=== PATIENT | male | born 1990 | race Hispanic/Latino ===

== ENCOUNTER 2020-08-10 11:06 | Emergency (ER) | payer OTHER, SELFPAY ==
--- NOTE | 2020-08-10 11:17 | ED.GENADULT ---
HPI - General Adult General Chief complaint: Skin/Abscess/Foreign Body Stated complaint: Insect Bite Time Seen by Provider: 08/10/20 11:17 Source: patient Mode of arrival: ambulatory Limitations: no limitations History of Present Illness HPI narrative: 30-year-old male patient presents to the [facility] with complaints of an insect bite to the left chest wall x2-3 days. Patient states that him and his were moving some furniture around in their bedroom on Wednesday and thinks that he may have gotten bit by something. Denies seeing any kind of spiders or ticks that he is aware of. Patient denies any body aches chills or fevers. Patient states he does have a little bit of pain that radiates up to the left shoulder. Denies any nausea, vomiting or diarrhea. Denies taking anything for his symptoms so far. Related Data Allergies Allergy/AdvReac Type Severity Reaction Status Date / Time No Known Allergies Allergy Verified 08/10/20 11:22 Review of Systems Review of Systems: Narrative: CONSTITUTIONAL: Denies fever, chills, or sweats. EYES: Denies visual changes, redness, or discharge. ENT: Denies rhinorrhea, congestion, sore throat, or otalgia. CARDIOVASCULAR: Denies chest pain, palpitations, or edema. RESPIRATORY: Denies cough or dyspnea. GASTROINTESTINAL: Denies abdominal pain, nausea, vomiting, or diarrhea. GENITOURINARY: Denies dysuria or hematuria. SKIN: Positive redness with insect bite to left chest wall x2 to 3 days MUSCULOSKELETAL: Denies back pain, joint pain, or myalgia. NEUROLOGIC: Denies headache, numbness, or weakness. PSYCHIATRIC: Denies anxiety or depression. PMFSH Comments At the time of my signature I agree with nursing past medical history, surgical, social, and family history. There is no relevant family history pertinent to the presenting complaint. Exam Narrative: Exam Narrative: GENERAL: Well-appearing, well-nourished, and in no acute distress. HEAD: Normocephalic, atraumatic. EYES: PERRLA and EOMI. ENT: Nares clear, no rhinorrhea or epistaxis. Mucous membranes moist. NECK: Supple. No lymphadenopathy CHEST: Clear to auscultation. No respiratory distress. HEART: Regular rate and rhythm. No murmur heard. Normal peripheral pulses. ABDOMEN: Soft, nontender, nondistended, normal active bowel sounds. EXTREMITIES: Normal range of motion. No edema. SKIN: Patient has a large reddened area to the left side of the chest wall measuring approximately 15 x 9 cm. The center nestor measuring approximately 3 cm in diameter. There does seem to be a little bit of a bull's-eye marking within the reddened area. The skin is warm to the touch. There is no open wound or discharge noted. NEURO: No focal deficits. Alert and oriented x3. Course Vital Signs Vital signs: Vital Signs Temperature 36.6 C 08/10/20 11:22 Pulse Rate 79 08/10/20 11:22 Respiratory Rate 16 08/10/20 11:22 Blood Pressure 141/65 H 08/10/20 11:22 Pulse Oximetry 100 08/10/20 11:22 Temperature 36.6 C 08/10/20 11:22 Pulse Rate 79 08/10/20 11:22 Respiratory Rate 16 08/10/20 11:22 Blood Pressure 141/65 H 08/10/20 11:22 Pulse Oximetry 100 08/10/20 11:22 Vital signs reviewed. The patient has been informed that they may have pre-hypertension or Hypertension based on a BP reading in the department. I recommend that the patient call the primary care provider listed on their discharge instructions or a physician of their choice this week to arrange follow up for further evaluation of possible pre-hypertension or Hypertension Medical Decision Making Differential Diagnosis Differential Diagnosis: Differential diagnosis: Abscess, cellulitis, hidradenitis, laceration, puncture wound. Discussed with patient and that we will go ahead and place patient on oral antibiotics for the cellulitis infection. Discussed with them to keep an eye on his symptoms and if he develops worsening symptoms such as fevers, body aches, chills, vomi
[2020-08-10 11:22] VITALS: BP 141/65; PULSE 79; RESP 16; TEMP 36.6; O2SAT 100
== END 2020-08-10 11:40 | disposition home or self-care (01) ==
PROVIDERS: Emergency Provider Nurse Practitioner Family
DX: L03.313 Cellulitis of chest wall (principal)
CPT/HCPCS: 99213; G0463

== ENCOUNTER 2020-11-11 08:56 | Emergency (ER) | payer OTHER, SELFPAY ==
--- NOTE | ~2020-11-11 | XR_ITS ---
EXAMINATION: XR finger 3rd LT min 2V EXAM DATE: 11/11/2020 11:51 INDICATION: Pain left 3rd finger injury 18 days ago. Initial encounter. TECHNIQUE: Left 3rd finger frontal, lateral and oblique projections obtained and reviewed. There i s no prior study for comparison. FINDINGS: There is left q3rd middle phalangeal acute closed posttraumatic base fracture extending th rough the middle of the proximal interphalangeal joint, with about 5 mm of displacement. This will li john need to be surgically fixed, recommend orthopedic consult. There is overlying soft tissue swelli ng. 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 IMPRESSION: Middle phalangeal base fracture into PIP joint, with displacement; recommend orthopedic c onsult. Reviewed, dictated and finalized at location A. NG SKILLS ADVISOR IMPRESSION: Middle phalangeal base fracture into PIP joint, with displacement; recommend orthopedic consult.
--- NOTE | 2020-11-11 09:04 | ED.UPPEXIN ---
HPI - Extremity Injury (Upper) General Chief Complaint: Extremity Injury, Upper Stated Complaint: Left Finger Pain Time Seen by Provider: 11/11/20 09:20 Source: patient and RN notes reviewed Mode of arrival: ambulatory Limitations: no limitations History of Present Illness HPI narrative: 30-year-old male presents with concern for injury to finger to the left hand. Reports he was playing soccer 2 weeks ago and the third digit of his left hand got bent back. He reports swelling, decreased range of motion. Reports he has been taking Tylenol, denies any other intervention. MD complaint: injury to: left and finger Related Data Home Medications Medication Instructions Recorded Confirmed No Home Medications 11/11/20 11/11/20 Allergies Allergy/AdvReac Type Severity Reaction Status Date / Time No Known Allergies Allergy Verified 08/10/20 11:22 Review of Systems Review of Systems: Narrative: CONSTITUTIONAL: Denies malaise, chills, sweats, or fever. SKIN: Denies abrasion, laceration MUSCULOSKELETAL: Reports swelling, pain, decreased range of motion to the third digit of the left hand NEUROLOGIC: Denies numbness, weakness All systems reviewed & are unremarkable except as noted in HPI and below PMFSH Comments At time of signature, agree with nursing past medical, surgical, social and family history. There is no relevant family history pertinent to the presenting complaint Exam Narrative: Exam Narrative: GENERAL: Well-appearing, well-nourished, and in no acute distress. HEAD: Normocephalic EYES: PERRLA, conjunctivae clear NECK: Supple. CHEST: Speaks in full sentences. No respiratory distress. HEART: Regular rate and rhythm. Normal and equal peripheral pulses. EXTREMITIES: Third digit of left hand has normal strength and sensation. Range of motion diminished, not able to flex digit. No clubbing, cyanosis. Edema noted. Mid digit tenderness. Skin intact. Normal digital cascade with flexion of fingers, median, ulnar and radial nerve intact. Normal sensation of each side of finger. Can perform 'okay' sign. Cannot perform 'cross over finger test of index and middle fingers' or 'thumbs up' sign. No scissoring. Normal thumb opposition. Good capillary refill and radial pulse. Distal capillary refill less than 3 seconds. SKIN: Warn, dry, intact, pink. No rash NEURO: Alert and oriented x3. PSYCH: Normal mood and affect Course Course Emergency Course: Patient is aware of diagnosis, understands and agrees to treatment plan. Anticipatory guidance given. Patient agrees to follow-up as directed and is aware of reasons to seek care at the emergency department. Portions of this record may have been created with voice recognition software Vital Signs Vital signs: Vital Signs Temperature 96.0 F L 11/11/20 09:11 Pulse Rate 61 11/11/20 09:11 Respiratory Rate 16 11/11/20 09:11 Blood Pressure 132/68 11/11/20 09:11 Pulse Oximetry 99 11/11/20 09:11 Temperature 96.0 F L 11/11/20 09:11 Pulse Rate 61 11/11/20 09:11 Respiratory Rate 16 11/11/20 09:11 Blood Pressure 132/68 11/11/20 09:11 Pulse Oximetry 99 11/11/20 09:11 Reviewed. MDM - Extremity Injury (Upper) MDM Narrative Medical decision making narrative: Exam findings and imaging show no acute concerns or changes; patient is non-toxic appearing and is in no distress. Patient is appropriate for outpatient treatment and follow-up. Differential Diagnosis Differential diagnosis: Likely finger sprain, dislocation of finger and other (Finger fracture) Imaging Data My impression: Images reviewed, interpreted by radiologist, agree, see report. Critical Care Time Critical Care Time Critical Care Time: No Discharge Plan Discharge Clinical Impression: Finger fracture, left Qualifiers: Encounter type: initial encounter Finger: middle finger Fracture type: closed Phalanx: middle Fracture alignment: displaced Qualified Code(s): S62.623A - Displaced fracture o
[2020-11-11 09:11] VITALS: BP 132/68; PULSE 61; RESP 16; TEMP 35.6; O2SAT 99
== END 2020-11-11 09:40 | disposition home or self-care (01) ==
PROVIDERS: Emergency Provider Nurse Practitioner
DX: S62.623A Displaced fracture of middle phalanx of left middle finger, initial encounter for closed fracture (principal); X50.9XXA Other and unspecified overexertion or strenuous movements or postures, initial encounter; Y93.66 Activity, soccer; S63.253A Unspecified dislocation of left middle finger, initial encounter
CPT/HCPCS: 29130; 73140; 99214; G0463

== ENCOUNTER → 2020-11-19 15:30 | Outpatient (CLI) | payer OTHER, SELFPAY ==
--- NOTE | ~2020-11-19 | CT_ITS ---
EXAMINATION: CT hand LT wo con DATE: 11/19/2020 15:55 INDICATION: Displaced fracture of the left third middle phalanx. TECHNIQUE: High resolution computed tomography (CT) of the left hand was performed without intravenou s contrast. Additional sagittal and coronal reconstructions were performed. Automated exposure contro l and iterative reconstruction technique were employed. The dose-length product was 106.15 mGy-cm. COMPARISON: Radiographs dated 11/11/2020 FINDINGS: Again seen is an oblique coronally oriented intra-articular fracture at the base of the left third mi ddle phalanx. There is 4 mm proximal migration and dorsal displacement of the distal fragment which i ncludes the dorsal half of the proximal articular surface. The smaller palmar sided fragment which in cludes the palmar half of the proximal articular surface remains in normal alignment relative to the head of the proximal phalanx. Joint effusion at the third proximal interphalangeal joint with surroun ding soft tissue swelling. No other fractures identified. Mild osteoarthritis at the third distal int erphalangeal joint. Remaining joint spaces are relatively preserved. IMPRESSION: 1. Intra-articular fracture involving the base of the third middle phalanx with mild dorsal displacem ent and proximal migration of the larger fragment as detailed above. Reviewed, dictated and finalized at location B. HING MACHINE OPERATOR IMPRESSION: 1. Intra-articular fracture involving the base of the third middle phalanx with mild dorsal displacement and proximal migration of the larger fragment as deta iled above.
== END ==
PROVIDERS: Visit Provider Plastic Surgery
DX: S62.623A Displaced fracture of middle phalanx of left middle finger, initial encounter for closed fracture (principal)
CPT/HCPCS: 73200

== ENCOUNTER 2020-11-23 01:35 | Outpatient (CLI) | payer OTHER, SELFPAY ==
[2020-11-23 18:46] LABS: SARS-CoV-2 RNA PCR Negative
== END 2020-11-23 01:36 | disposition home or self-care (01) ==
LOC: ANHCOVIDDT 01:37
PROVIDERS: Visit Provider Plastic Surgery
DX: Z01.812 Encounter for preprocedural laboratory examination (principal); Z20.822 Contact with and (suspected) exposure to COVID-19
CPT/HCPCS: C9803; U0003; U0005

== ENCOUNTER 2020-11-27 01:22 | Day surgery (SDC) | payer OTHER, SELFPAY ==
[2020-11-22 12:04] VITALS: BMI 43.0
[2020-11-22 12:40] VITALS: BP 128/75; PULSE 79; RESP 16; TEMP 36.4; O2SAT 99
[2020-11-27] VITALS (7 sets, daily range): BP systolic 121–145; BP diastolic 55–90; PULSE 58–111; RESP 10–20; TEMP 36.1–36.4; O2SAT 93–100
--- NOTE | ~2020-11-27 | XR_ITS ---
XR surgery orthopedic DATE: 11/27/2020 13:49 INDICATION: ORIF left middle finger TECHNIQUE: Numerous spot C-arm images 212.5 seconds fluoroscopy time 3.46 mGy COMPARISON: 11/11/2020 left third digit FINDINGS: A screw is directed posteroanteriorly through the proximal aspect of the middle phalanx of the third digit. IMPRESSION: ORIF middle phalangeal fracture Reviewed, dictated and finalized at Location A. Reviewed, dictated and finalized at location A. TAL MARKETING PROGRAM MANAGER
--- NOTE | 2020-11-27 07:10 | WPDHPUPDATE1 ---
History and Physical Update Update Date/Time: 11/27/20 07:10 History and Physical has been reviewed, including an updated exam of the patient. There are NO changes in the patient's condition. Risks, benefits, and alternatives have been discussed and questions answered. Patient agrees to proceed with procedure.
[2020-11-27] MEDS: LACTATED RINGERS 1,000 ML 30 ML IV CONT ×2 (09:41→13:51)
--- NOTE | 2020-11-27 10:21 | P.PNAN_ITS ---
Anes - Initial Pre Proc Eval Procedure: Operation Date: 11/27/20 10:30 Proposed Procedures p Open Reduction Internal Fixation Left Middle Finger Middle Phalanx With Screws Or Wires, Possible External Fixation - Neo Soriano MD Date/Time: 11/27/20 10:21 Surgeon: Neo Soriano MD Pre Op Diagnosis: left middle finger fx Patient Data Age: 30 Gender: M Height: 5 ft 5 in Weight: 114.8 kg Last Vital Signs Temp 97.0 F L 11/27/20 08:45 Pulse 58 L 11/27/20 08:45 Resp 18 11/27/20 08:45 BP 128/81 11/27/20 08:45 Pulse Ox 97 11/27/20 08:45 Allergies Allergy/AdvReac Type Severity Reaction Status Date / Time No Known Allergies Allergy Verified 11/27/20 09:18 Home Medications Medication Instructions Recorded Confirmed Type omeprazole 20 mg PO PRN PRN 11/22/20 11/22/20 History Patient hx anesthesia problems: none Family hx anesthesia problems: none [facility] Past Medical History Medical History (Updated 11/27/20 @ 10:21 by Jimmy Groves MD) GERD (gastroesophageal reflux disease) Morbid obesity Social History Social History Smoking status: Never smoker Alcohol intake: current Drinks per week: 1 Living arrangements: with family Spiritual care concerns: No Anes - Eval Final PreProcedure Day of Procedure 11/27/20 10:21 Patient weight: morbidly obese Heart: regular rate and rhythm Lungs: clear to auscultation Airway: Mallampati scale class II Neurological: alert and oriented Last oral intake: >/= 8 hours ASA classification: III Emergent: no Anesthetic plan: proceed Anesthesia type and monitoring: general LMA and standard monitoring Informed Consent: The patient's anesthetic plan and its attendant risks and benefits were discussed with the patient/family/POA. Questions were solicited and answers provided to the satisfaction of the patient/family/POA.
[2020-11-27] MEDS: LIDO 1%/EPINEPHRINE 1:100,000 50 ML VIAL 20 ML INFILTRATE (11:41)
[2020-11-27] MEDS: BACITRACIN OINTMENT 15 GM TUBE 1 APPLIC TOPICAL (13:31)
[2020-11-27] MEDS: BUPIVACAINE HCL 0.5% PF 30 ML VIAL INFILTRATE (13:38)
--- NOTE | 2020-11-27 13:44 | P.OPB_ITS ---
Procedure Note - Brief Procedure Note - Brief Date of procedure: 11/27/20 Pre-op diagnosis: left middle finger fx Post-op diagnosis: same Procedure performed: Open reduction and placement of external fixator to left middle finger. Surgeon: Neo Soriano MD Electric Track Switch Maintainer: Vahe Estimated blood loss (mL): 5 Tourniquet time (min): 110 Drains: No Packing: No Pathology: none sent Complications: No immediate complications Condition: stable
--- NOTE | 2020-11-27 15:59 | SUR.PHASEII ---
[id number] dr miranda notified at office. pt is oozing from sutures a fair amount, or nurse, leigh, on phone with dr miranda getting directions about type of dressing to apply. vaseline gauze, sponges, and krylix applied to lt middle finger. directions given to spouse.
--- NOTE | 2020-11-27 18:16 | P.OP_ITS ---
Procedure Note - Detailed Date of procedure: 11/27/20 Pre-op diagnosis: left middle finger fx Post-op diagnosis: other (Fracture dislocation of the middle phalanx of the left middle finger.) Procedure performed: Open reduction and application of Barney external dynamic fixator. Description of procedure: The patient's left hand was marked in the holding area. He was taken to the operating room and placed upon the operating table. A Time-Out was held and confirmed. He was given general anesthesia with endotracheal intubation. The left upper extremity was prepped and draped in usual fashion. A tourniquet was applied. An attempt was made to reduce this fracture dislocation under C-arm control. Reduction could not be achieved. Markings were made on the palm side of the finger for access via a radial based flap. The tourniquet was inflated to 250 mmHg. Lidocaine 1% with epinephrine was infiltrated as an intrathecal block. The flap was incised and elevated to the radial side. The ulnar neurovascular bundle was identified and held with a vessel loop. The sheath between the A2 and the A4 pulleys was incised and also elevated to the radial side. The fracture fragment at the volar base was confirmed by C-arm imaging and I undertook to separate the fragments and defined them. This proved to be very tedious. This fracture is more than 4 weeks out I believe. A dorsal midline incision was then made and the joint was opened between the ulnar lateral bands and the central slip. Even from that vantage I was not able to reduce the fracture. Fracture clot and small fragments of cartilage were removed from the joint space. Portions of the central slip tucked between the bones dorsally initially impeded this maneuver. I felt uneasy about further disrupting the central slip or collateral ligaments or the base of the A 4 iram which might have made reduction easier. We did attempt a lag screw from the dorsal to volar ulnar direction, but could not fully reduce the fracture. At that point I determined to move forward with an external fixator. I repaired the lateral bands and central slip with 4-0 Prolene. I turned the hand over and repaired the flexor sheath with 4-0 Prolene. The dorsal skin wound was closed with running 5 0 nylon. Under C-arm control a transverse 0.045 in C wire was driven through the head of the proximal phalanx at the center of the arc of rotation. The 2nd pin was placed transversely through the dorsal subluxed shaft at the most distal aspect of the fracture. The distal traction pin was placed closer to the head of the middle phalanx. The long traction pin was bent appropriately at both ends for traction hooks. Jurgan's balls were applied to the cut ends of the distal 2 pins. The volar flap was closed with running 4-0 nylon. The long traction wire was arced over the middle pin and under the distal pin. The dental rubber bands were applied placing the fracture on traction longitudinally and palmarward. Half % Bupivacaine was injected at the base of the digit. Images were made demonstrating the reduction that had been made and the congruency of the joint surfaces in extension and flexion. The patient was awakened and transported to the recovery in stable condition. Anesthesia: GLMA Surgeon: Neo Soriano MD Blasting Contract Miner: Vahe Estimated blood loss (mL): 10 Tourniquet time (min): 110 Drains: No Packing: No Pathology: none sent Complications: No immediate complications Condition: stable Disposition: PACU
== END 2020-11-27 16:00 | disposition home or self-care (01) ==
PROVIDERS: Visit Provider Plastic Surgery
PROC: (CPT 26735; principal; 2020-11-27 10:30)
DX: S62.623A Displaced fracture of middle phalanx of left middle finger, initial encounter for closed fracture (principal); K21.9 Gastro-esophageal reflux disease without esophagitis; E66.01 Morbid (severe) obesity due to excess calories; Z68.41 Body mass index [BMI] 40.0-44.9, adult; W21.02XA Struck by soccer ball, initial encounter; Y93.66 Activity, soccer
CPT/HCPCS: 26735; 20690; A9270; C1713; C9803; J0330; J0690; J1100; J1170; J2250; J2405; J2704; J3010; J7120; U0003; U0005

== ENCOUNTER 2020-12-17 13:50 | Outpatient (RCR) | payer OTHER, SELFPAY ==
--- NOTE | 2020-12-17 14:48 | OTOPEVAL ---
OCCUPATIONAL THERAPY INITIAL EVALUATION REPORT 12/17/20 Hernan presented today for OT evaluation 3 weeks following open reduction and application of a Barney external dynamic fixator. He has been instructed in ROM exercises as well as edema management. He is independent with all instructed materials at this time and demonstrates good understanding. Plan to have patient continue to be followed by OT, but no formal visits scheduled at this time. Plan to have patient return for progression of exercises after pin removal surgery. Will keep patient's chart open to allow him to return if there happen to be any issues in the meantime. Thank you for referring Hernan Talavera to [facility].? The patient is scheduled to be seen for therapy? 0-1x/week for 4 weeks. Please review, sign, date and return this plan of care JESSICA. I agree with and certify that the following plan of care is medically necessary. Referring Physician Date Referring Provider: Neo Soriano MD *OT Outpatient Evaluation Start: 12/17/20 14:01 Freq: Status: Active Protocol: Document 12/17/20 14:01 JENNI (Rec: 12/17/20 14:48 JENNI [email or web address]) Therapy Assessment Status Assessment Status Assessment Status Evaluation Outpatient Past Medical History Past Medical History Source of Past Medical History Recalled from Previous Visit, Confirmed with Patient/Family Neurological History Hx Neurological Disorders No Significant History Cardiovascular History Hx Cardiac Disorders No Significant History Respiratory History Hx Respiratory Disorders No Significant History Gastrointestinal History Hx Gastroesophageal Reflux Disease Yes Genitourinary History Hx Genitourinary Disorders No Significant History Musculoskeletal History Hx Crutches or Walker Use Yes: CRUTCHES Query Text:If Yes, Enter Crutches, Walker, or Both in the Comment Hx Fractures Yes: tibia Hx Orthopedic Surgery Yes: TIBIA/ANKLE ORIF/HARDWARE REMOVED Hx Other Musculoskeletal Disorders Yes: LEFT MIDDLE FINGER FX Hematological History Hx Hematological Disorders No Significant History Endocrine History Hx Endocrine Disorders No Significant History HEENT History Hx HEENT Disorders No Significant History Integumentary History Hx Skin Disorders No Significant History Reproductive History Hx Reproductive Disorders No Significant History Psychosocial History Hx Psychiatric Disorders No Significant History Pain History History of Any Previous or Ongoing No Significant History Instance of Pain Anesthesia History Hx Anesthesia Reactions No Significant History Evaluation Information Problem Diagnosis Fracture dislocation left middle finger PIP joint and middle phalanx Onset 10/25/20 Additional Evaluation Detail Patient did not get acosta
--- NOTE | 2020-12-27 15:08 | PCOTNOTE ---
Spoke with Dr. Soriano and the patient via phone today. Hernan had his follow up appointment with Dr. Soriano on Wednesday12/25/20. Dr. Soriano reports that the pin sites are doing well and he has minimal swelling. Plan is to follow up for repeat x-rays in 2 weeks. Hernan states that his exercises are going well and he does not feel any need to follow up with therapy at this time. Will be in touch with MD and patient after repeated x-rays to see when the pins will be removed and have the patient scheduled a follow up with therapy. Hermes Saavedra, OTR/L, CHT
--- NOTE | 2021-01-22 15:41 | PCOTNOTE ---
01/22/21 - Spoke with Dr. Soriano who stated that the patient is cleared to return to therapy. Called pt and left voicemail to set up an appointment.
--- NOTE | 2021-02-04 09:36 | PCOTNOTE ---
Admitting Provider: Attending Provider: Neo Soriano MD Patient:Hernan Talavera Date of :1990 Patient has not returned for any further treatments since his initial evaluation on 12/17/2020, therefore he will be discharged at this time. At the initial visit he was instructed in ROM exercises and edema management. He was independent with all materials and it was agreed that he did not need continued visits. His chart was left open to allow him to return as needed, but he did not call to schedule any follow up visits. Today his chart is being discharged as it has been 7 weeks since he has been seen by therapy. No formal re-assessment has been completed as he has not returned. Please refer back to therapy if needed. Thank you for referring this patient to [facility]. Please review, sign, date and return this discharge summary JESSICA. I have been updated about the patient's current status and I agree with discharge from the above service at this time. Referring Physician Date Referring Provider: Neo Soriano MD
== END 2021-03-03 07:31 | disposition home or self-care (01) ==
LOC: ANHOT 13:50
PROVIDERS: Visit Provider Plastic Surgery
DX: Z47.89 Encounter for other orthopedic aftercare (principal)
CPT/HCPCS: 97110; 97165

== ENCOUNTER 2020-12-26 17:22 | Emergency (ER) | payer OTHER, SELFPAY ==
--- NOTE | 2020-12-26 17:32 | ED.BACK ---
HPI - Back Pain/Injury General Chief Complaint: Back Pain/Injury Stated Complaint: lower back pain Time Seen by Provider: 12/26/20 17:38 Source: patient and RN notes reviewed Mode of arrival: ambulatory Limitations: no limitations History of Present Illness HPI Narrative: 30-year-old male presents with concern for mid low back pain. Reports pain started approximately 2 weeks ago and has been intermittent however over the last several days it has gotten worse. Reports pain is worse when sitting down, slightly alleviated when standing up. Denies any injury or trauma. Denies fever, abdominal pain, weakness in any extremity, loss of bowel or bladder function, perianal anesthesia, bruising, spinal tenderness. MD elicited complaint: back pain Related Data Allergies Allergy/AdvReac Type Severity Reaction Status Date / Time No Known Allergies Allergy Verified 12/26/20 17:37 Review of Systems Review of Systems: Narrative: CONSTITUTIONAL: Denies malaise, chills, sweats, or fever. CARDIOVASCULAR: Denies chest pain, palpitations, or edema. RESPIRATORY: Denies cough or dyspnea. GASTROINTESTINAL: Denies abdominal pain, nausea, vomiting, diarrhea, bloody, or mucous stools. GENITOURINARY: Denies dysuria or hematuria. SKIN: Denies bruising, redness MUSCULOSKELETAL: Reports mid low back pain. Denies joint pain, or myalgia. NEUROLOGIC: Denies numbness, weakness, or headache. PSYCHIATRIC: Denies anxiety or depression. All systems reviewed & are unremarkable except as noted in HPI and below PMFSH Past Medical History Medical History (Updated 12/26/20 @ 17:49 by Madison Frost NP) GERD (gastroesophageal reflux disease) Morbid obesity Social History Social History Smoking status: Never smoker Alcohol intake: current Drinks per week: 1 Gender identity (if verbalized by the patient): Male Spiritual care concerns: No Comments At time of signature, agree with nursing past medical, surgical, social and family history. There is no relevant family history pertinent to the presenting complaint Exam Narrative: Exam Narrative: GENERAL: Well-appearing, well-nourished, and in no acute distress. HEAD: Normocephalic, atraumatic. EYES: PERRLA and EOMI. NECK: Supple. No lymphadenopathy. CHEST: Clear to auscultation. No respiratory distress. HEART: Regular rate and rhythm. Distal pulses palpable and equal, cap refill <3 seconds ABDOMEN: Soft, nontender, nondistended, normal active bowel sounds, no palpable or pulsatile masses. No CVA tenderness MUSCULOSKELETAL: Normal range of motion and strength in all extremities; 5/5 strength with hip flexion and extension, dorsiflexion and extension, knee flexion and extension, plantar flexion and extension. Normal sensation in dermatomal distributions with sensitivity to light touch and pain. No midline back tenderness to palpation. No paraspinal tenderness. Transfers from lying to sitting to standing. SKIN: Warm, dry, no rash. No ecchymosis, erythema, open wounds to back. NEURO: No focal deficits. Alert and oriented x3. Reflexes intact. Normal gait. PSYCH: Normal mood and affect Course Course Emergency Course: Patient is aware of diagnosis, understands and agrees to treatment plan. Anticipatory guidance given. Patient agrees to follow-up as directed and is aware of reasons to seek care at the emergency department. Portions of this record may have been created with voice recognition software Vital Signs Vital signs: Vital Signs Temperature 96.6 F L 12/26/20 17:42 Pulse Rate 82 12/26/20 17:42 Respiratory Rate 16 12/26/20 17:42 Blood Pressure 131/70 12/26/20 17:42 Pulse Oximetry 99 12/26/20 17:42 Temperature 96.6 F L 12/26/20 17:42 Pulse Rate 82 12/26/20 17:42 Respiratory Rate 16 12/26/20 17:42 Blood Pressure 131/70 12/26/20 17:42 Pulse Oximetry 99 12/26/20 17:42 Reviewed. MDM - Back Pain/Injury MDM Narrati
[2020-12-26 17:42] VITALS: BP 131/70; PULSE 82; RESP 16; TEMP 35.9; O2SAT 99
== END 2020-12-26 17:54 | disposition home or self-care (01) ==
PROVIDERS: Emergency Provider Nurse Practitioner
DX: M54.5 Low back pain (principal); K21.9 Gastro-esophageal reflux disease without esophagitis; E66.01 Morbid (severe) obesity due to excess calories; Z68.30 Body mass index [BMI] 30.0-30.9, adult
CPT/HCPCS: 99213; G0463

== ENCOUNTER → 2021-01-04 10:44 | Outpatient (CLI) | payer OTHER, SELFPAY ==
--- NOTE | ~2021-01-04 | XR_ITS ---
XR finger 3rd LT min 2V 01/04/2021 11:00 Indication: Follow-up left third middle phalangeal fracture Procedure: 4 views left third finger Comparison: 11/11/2020 Findings: Stable alignment of mildly displaced oblique intra-articular fracture base of the left thir d middle phalanx with evidence for osseous bridging and callus formation. Osteopenia. No other fractu re. Overlying splint noted. Impression: 1: Healing oblique mildly displaced intra-articular fracture left third middle phalanx. Reviewed, dictated and finalized at location A. ST EXAMINER Impression: 1: Healing oblique mildly displaced intra-articular fracture left third middle phalanx.
== END ==
PROVIDERS: Visit Provider Plastic Surgery
DX: S62.623A Displaced fracture of middle phalanx of left middle finger, initial encounter for closed fracture (principal)
CPT/HCPCS: 73140

== ENCOUNTER → 2021-01-11 00:55 | Outpatient (CLI) | payer OTHER, SELFPAY ==
[2021-01-11 19:12] LABS: SARS-CoV-2 RNA PCR Negative
== END ==
PROVIDERS: Visit Provider Plastic Surgery
DX: Z01.812 Encounter for preprocedural laboratory examination (principal); Z20.822 Contact with and (suspected) exposure to COVID-19
CPT/HCPCS: C9803; U0003; U0005

== ENCOUNTER 2021-01-15 02:29 | Day surgery (SDC) | payer OTHER, SELFPAY ==
[2021-01-08 14:29] VITALS: BMI 45.7
[2021-01-15] VITALS (8 sets, daily range): BP systolic 130–150; BP diastolic 67–91; PULSE 55–62; RESP 14–20; TEMP 36.1; O2SAT 98–100
--- NOTE | ~2021-01-15 | XR_ITS ---
EXAMINATION: XR surgery orthopedic DATE: 01/15/2021 09:43 INDICATION: Removal of external fixator from the left third digit. TECHNIQUE: 12 fluoroscopic images of the left third digit were obtained during procedure performed by Dr. Soriano. Radiologist was not present for the imaging or procedure. The amount of fluoroscopy time used during this procedure was 2.0 minutes. COMPARISON: 11/27/2020 FINDINGS: Initial images demonstrate external fixation device at the third digit with pins extending through th e head of the proximal phalanx and through the mid and distal aspect of the middle phalanx. There are a few additional pre-existing pin tracks through the middle phalanx. Subsequent images demonstrate r emoval of the external fixation device with no residual retained foreign bodies. The prior intra-kim cular fracture at the base of the middle phalanx has healed in near-anatomic alignment with negligibl e residual incongruity along the articular surface. Benign-appearing periosteal reaction about the di stal diaphysis of the proximal phalanx likely in response to the external fixation device. 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 IMPRESSION: 1. Fluoroscopy utilized during removal of external fixation which spanned a now healed intra-articula r fracture at the base of the middle phalanx which is in near-anatomic alignment. Reviewed, dictated and finalized at location A. IMPRESSION: 1. Fluoroscopy utilized during removal of external fixation which spanned a now healed intra-articular fracture at the base of the middle phalanx which is in near-anatomic alignment.
--- NOTE | 2021-01-15 07:36 | WPDHPUPDATE1 ---
History and Physical Update Update Date/Time: 01/15/21 07:36 History and Physical has been reviewed, including an updated exam of the patient. There are NO changes in the patient's condition. Risks, benefits, and alternatives have been discussed and questions answered. Patient agrees to proceed with procedure.
[2021-01-15] MEDS: LIDO 1%/EPINEPHRINE 1:100,000 50 ML VIAL INFILTRATE (09:11)
--- NOTE | 2021-01-15 09:46 | PM.PROC ---
Procedure Note - Detailed Date of procedure: 01/15/21 Pre-op diagnosis: s/p middle finger phalanx fx Post-op diagnosis: same Procedure performed: Removal of external fixator left middle finger and ROM manipulation under local anesthesia. Anesthesia: local Surgeon: Neo Soriano MD Estimated blood loss (mL): 0 Tourniquet time (min): 0 Drains: No Packing: No Pathology: none sent Complications: No immediate complications Condition: stable Disposition: same day
--- NOTE | 2021-01-15 09:48 | PM.PROC ---
Procedure Note - Detailed Date of procedure: 01/15/21 Pre-op diagnosis: s/p middle finger phalanx fx SP fracture dislocation of middle phalanx of left middle finger with application of Barney dynamic external fixator. Post-op diagnosis: same Procedure performed: Removal of Barney dynamic external fixator to the left middle finger and range of motion manipulation under local anesthesia. Description of procedure: Patient's hand was marked in the holding stanley. He was taken to the operating room and placed supine on the operating table. Time-out was held and confirmed. The left upper extremity was prepped and draped in usual fashion. Local anesthetic was administered via intrathecal block using 1% lidocaine with epinephrine. The external fixator was removed without difficulty. Images were taken just prior to removal of the device and multiple images were taken during the range of motion portion of the procedure. Images, moving and static, show healed fragment malunion, and widening the overall joint diameter. Lateral views seem to show slight dorsal subluxation, however others appear to show satisfactory gliding of the middle phalanx on the head of the proximal phalanx. Active range of motion images were not stored on our fluoroscopic device, but appeared to show the same thing. The digit appears to passively flex from 0-60 ?. The patient could flex and extend actively. No grinding of the joint was palpable. There was no evidence of infection. The patient will be discharged home with Band-Aids to be removed later today or tomorrow. He has a prescription for cephalexin 500 mg 3 times a day for 5 days. He has a prescription for hydrocodone 5/325 10.. He is to continue the sort of exercises he has been doing while in the fixator. He will be followed up in 1 week. Surgeon: Neo Soriano MD
--- NOTE | 2021-01-15 09:59 | PM.PROC ---
Procedure Note - Detailed Date of procedure: 01/15/21 Pre-op diagnosis: s/p middle finger phalanx fx Surgeon: Neo Soriano MD
--- NOTE | 2021-01-15 10:08 | SUR.PHASEII ---
1000- per Dr Soriano, also called in to the pharmacy was an order for a few days of an antibiotic. Pt aware of this, and told to pick it up when he picks up pain medicine.
== END 2021-01-15 10:20 | disposition home or self-care (01) ==
PROVIDERS: Visit Provider Plastic Surgery
PROC: (CPT 20694; principal; 2021-01-15 09:45)
DX: Z47.2 Encounter for removal of internal fixation device (principal); S62.623D Displaced fracture of middle phalanx of left middle finger, subsequent encounter for fracture with routine healing
CPT/HCPCS: 20694; C9803; U0003; U0005

== ENCOUNTER 2024-03-21 10:35 | Emergency (ER) | payer SELFPAY ==
--- NOTE | 2024-03-21 10:41 | ED.EYEPROB ---
HPI - Eye Problem General Chief complaint: Eye Problems Stated complaint: Left Eye Irritation Time Seen by Provider: 03/21/24 11:06 Source: patient and RN notes reviewed Mode of arrival: ambulatory Limitations: no limitations History of Present Illness HPI Narrative: 33-year-old male presents with concern for left eye redness, irritation, drainage since yesterday. He denies vision changes. Reports his daughter recently had pinkeye. Reports his eye was crusted shut this morning chief complaint: eye redness Related Data Allergies Allergy/AdvReac Type Severity Reaction Status Date / Time No Known Allergies Allergy Verified 01/08/21 14:28 Review of Systems Review of Systems: CONSTITUTIONAL: Denies malaise, chills, sweats, or fever. EYES: Denies visual changes. Reports left eye redness, irritation, discharge. ENT: Denies rhinorrhea, congestion, sinus pain, otalgia or sore throat. SKIN: Denies rash or itching. NEUROLOGIC: Denies numbness, weakness, or headache. PSYCHIATRIC: Denies anxiety or depression. All systems reviewed & are unremarkable except as noted in HPI and below PMFSH Past Medical History Medical History (Updated 03/21/24 @ 11:09 by Madison Frost NP) GERD (gastroesophageal reflux disease) Morbid obesity Social History Social History Smoking status: Never smoker Alcohol intake: current Drinks per week: 4 Substance use: never Substance use type: does not use Living arrangements: with family Gender identity (if verbalized by the patient): Male Spiritual care concerns: No Comments At time of signature, agree with nursing past medical, surgical, social and family history. There is no relevant family history pertinent to the presenting complaint Exam Narrative: GENERAL: Well-appearing, well-nourished, and in no acute distress. HEAD: Normocephalic, atraumatic. EYES: PERRLA and EOMI. No nystagmus. Left sclera and conjunctivae injected. Left upper eyelid edematous Right Upper and lower eyelid unremarkable. No periorbital edema noted ENT: Nares clear, turbinates pink, no rhinorrhea or epistaxis. Mucous membranes moist. TM pearly fragoso with sharp light reflex bilaterally; no tragal tenderness. NECK: Supple. CHEST: No respiratory distress. Speaks in full sentences. HEART: Regular rate and rhythm. SKIN: Warm, dry, no visible rash. NEURO: Alert and oriented x3. PSYCH: Normal mood and affect Course Course Emergency Course: Patient is aware of diagnosis, understands and agrees to treatment plan. Anticipatory guidance given. Patient agrees to follow-up as directed and is aware of reasons to seek care at the emergency department. Portions of this record may have been created with voice recognition software Level of Care: Express Care Visit Vital Signs Vital signs: Reviewed. MDM - Eye Problem MDM Narrative Medical decision making narrative: Consideration of the following conditions may be warranted for the presenting problem, they are not final diagnoses: Bacterial conjunctivitis, allergic conjunctivitis, viral conjunctivitis, foreign body, blepharitis, chalazion, hordeolum, corneal abrasion, preseptal cellulitis, orbital cellulitis. No evidence of proptosis, ophthalmoplegia, vision loss, pain with eye movement. Exam findings show no acute concerns or changes; patient is non-toxic appearing and is in no distress. Patient is appropriate for outpatient treatment and follow-up. Critical Care Time Critical Care Time Critical Care Time: No Discharge Plan Discharge Clinical Impression: Conjunctivitis Patient Disposition: Home, Self-Care Condition: Stable Instructions: Conjunctivitis (ED) Additional Instructions: Do not touch or rub your eye. Use a warm or cool washcloth on your eye for comfort Use eyedrops as directed Practice good handwashing and hygiene to prevent spread of infection You may take Tyleno
[2024-03-21 10:48] VITALS: BP 122/72; PULSE 69; RESP 16; TEMP 36.7; O2SAT 99
== END 2024-03-21 11:14 | disposition home or self-care (01) ==
PROVIDERS: Emergency Provider Nurse Practitioner
DX: H10.9 Unspecified conjunctivitis (principal); K21.9 Gastro-esophageal reflux disease without esophagitis; E66.01 Morbid (severe) obesity due to excess calories; Z68.41 Body mass index [BMI] 40.0-44.9, adult
CPT/HCPCS: 99213; G0463